=== PATIENT | male | born 1940 | race Caucasian/White ===

== ENCOUNTER 2019-12-22 20:31 | Emergency (ER) | payer SELFPAY ==
[~2019-12-22] VITALS: Ht 172.7 cm; Wt 92.5 kg
[2019-12-22 20:36] VITALS: Ht 172.7 cm; Wt 92.5 kg
[2019-12-22] MEDS ORDERED: ZOLOFT50 MG PO (20:38)
[2019-12-22] MEDS ORDERED: TRIBENZOR 40-51 EAC1 PO (20:39)
[2019-12-22] MEDS ORDERED: FENOFIBRATE160 MG PO (20:39)
[2019-12-22 20:50] LABS: BASOPHILS 0.5 % (0-2); EOSINOPHILS 1.3 % (0-7); HEMATOCRIT 38.6 % (42.0-54.0); HEMOGLOBIN 12.5 g/dL (13.5-17.5); IMMATURE GRANULOCYTES 0.3 % (0-5); LYMPHOCYTES 17.5 % (15-50); MCH 32.7 pg (26.0-34.0); MCHC 32.4 g/dL (31.0-37.0); MEAN PLATELET VOLUME 12.1 fL (7.4-10.4); MONOCYTES 11.7 % (2-11); NEUTROPHILS 68.7 % (40-80); PLATELET COUNT 126 10x3/uL (130-400); RBC 3.82 10x6/uL (4.20-6.10); RDW 13.2 % (11.5-14.5); WBC 6.2 10x3/uL (4.8-10.8)
[2019-12-22 21:04] LABS: CALC OSMOLALITY 287 mosm/kg (275-300); CALCIUM 8.2 mg/dL (8.5-10.1); CARBON DIOXIDE 24.1 mmol/L (21.0-32.0); CHLORIDE - SERUM 103 mmol/L (98-107); CREATININE - SERUM 1.9 mg/dL (0.6-1.3); GLUCOSE 119 mg/dL (74-106); POTASSIUM - SERUM 4.2 mmol/L (3.5-5.1); SODIUM 136 mmol/L (136-145); UREA NITROGEN 54 mg/dL (7-18); eGFR NON AFRICAN AMERICAN 37 mL/min (90-120)
[2019-12-22 21:19] LABS: ALBUMIN 3.2 g/dL (3.4-5.0); ALKALINE PHOSPHATASE 78 U/L (30-120); ALT (SGPT) 26 U/L (10-68); BILIRUBIN - TOTAL 0.39 mg/dL (0.2-1.3); CKMB 2.2 U/L (0.0-3.6); PROTEIN - SERUM 6.6 g/dL (6.4-8.2); TROPONIN-I < 0.017 ng/mL (0.000-0.060)
[2019-12-22 21:37] LABS: BILIRUBIN NEGATIVE (NEGATIVE); GLUCOSE NEGATIVE (NEGATIVE); KETONE NEGATIVE (NEGATIVE); NITRITE NEGATIVE (NEGATIVE); UROBILINOGEN NORMAL (NORMAL)
[2019-12-22] MEDS ORDERED: HYDROCODON-ACE1 EAC7 PO (22:44)
[2019-12-22 23:41] VITALS: BP 162/78
== END 2019-12-22 23:49 | disposition home or self-care (01) ==
LOC: D.ER 20:31
PROVIDERS: Family Medicine
DX: R55 Syncope and collapse (principal); I95.9 Hypotension, unspecified; D64.89 Other specified anemias; E86.0 Dehydration; W19.XXXA Unspecified fall, initial encounter; Z91.81 History of falling; Y93.9 Activity, unspecified; Y92.9 Unspecified place or not applicable; R07.81 Pleurodynia

== ENCOUNTER 2021-02-02 12:00 | Day surgery (SDC) | payer MEDICARE, OTHER ==
[~2021-02-02] VITALS: Ht 172.7 cm; Wt 95.5 kg
[~2021-02-02 12:00] MED LIST: FENOFIBRATE160 MG PO; HYDROCODON-ACE1 EAC7 PO; TRIBENZOR 40-51 EAC1 PO; ZOLOFT50 MG PO
[2021-02-02 12:17] LABS: EOSINOPHILS 2.5 % (0-7); HEMATOCRIT 42.7 % (42.0-54.0); HEMOGLOBIN 14.5 g/dL (13.5-17.5); LYMPHOCYTES 21.9 % (15-50); MCHC 33.9 g/dL (31.0-37.0); MCV 97.3 fL (80.0-100.0); MEAN PLATELET VOLUME 9.4 fL (7.4-10.4); MONOCYTES 11.8 % (2-11); NEUTROPHILS 62.8 % (40-80); RBC 4.39 10x6/uL (4.20-6.10); RDW 13.8 % (11.5-14.5); WBC 4.8 10x3/uL (4.8-10.8)
[2021-02-02 12:31] LABS: PLATELET COUNT 169 10x3/uL (130-400)
[2021-02-02 12:34] LABS: ANION GAP 9.3 mmol/L (8-16); CALCIUM 9.4 mg/dL (8.5-10.1); CARBON DIOXIDE 29.1 mmol/L (21.0-32.0); CREATININE - SERUM 1.6 mg/dL (0.6-1.3); POTASSIUM - SERUM 4.4 mmol/L (3.5-5.1)
[2021-02-02 13:05] VITALS: BP 171/79; Ht 172.7 cm; Wt 95.5 kg
--- NOTE | 2021-02-02 17:30 | NUR ---
DC TEACHING COMPLETE TO AND PATIENT. VERBALIZED UNDERSTANDING. 1741 PIV REMOVED WITH CATHETER INTACT. ASSITING PT TO GET DRESSED. 1754 PT DC'D VIA WC TO POV ACCOMPANIED BY KELLY WITH ALL BELONGINGS AND DC PACKET.
--- NOTE | 2021-02-03 06:26 | OP ---
PATIENT NAME: BHARATH MCDONALD MEDICAL RECORD: [id number] :42 LOCATION:[facility] ADMISSION DATE: SURGEON: ALYSSA BRENNER DO DATE OF OPERATION: 02/02/2021 PROCEDURE: Colonoscopy with polypectomy. INDICATION FOR PROCEDURE: History of colon polyps. SCOPE: Olympus video pediatric colonoscope. MEDICATIONS: General anesthesia. Please see anesthesia report. COMPLICATIONS: None. FINDINGS AND DESCRIPTION OF PROCEDURE: Informed consent was given. The patient was made comfortable with the above medication. After reaching an adequate level of sedation by slow IV push, the patient was placed on his left side. Digital rectal examination was performed and it was normal. The endoscope was advanced under direct visualization through the rectum to the cecum, confirmed by the presence of the appendiceal orifice and ileocecal valve. The endoscope was slowly withdrawn and the mucosa was carefully examined. The prep quality was fair. There were numerous polyps visualized on today's examination. All were removed using a hot snare. In the sigmoid colon, there were 12 separate benign-appearing sessile polyps, which ranged in size from 3 mm to 7 mm in diameter. In the descending colon, there were 6 polyps, which were benign-appearing, sessile, and ranged in size from 3 to 8 mm in diameter. In the transverse colon, there were two benign-appearing sessile polyps, which ranged in size from 3 to 5 mm in diameter. In the ascending colon, there was a single polyp, which was benign and sessile and measured approximately 5 mm in diameter. Again, all polyps were removed using a hot snare. Retroflexion was not performed on today's examination. The endoscope was withdrawn from the patient. The patient tolerated the procedure well and there were no complications. IMPRESSION: Numerous polyps as described above, removed using hot snare. PLAN AND RECOMMENDATIONS: 1. Discharge home when recovery parameters are met. 2. Follow up biopsy specimen results. 3. High fiber diet. 4. Continue current medications. 5. Recall colonoscopy in 1 to 2 years in the OR while intubated. TRANSINT:[id number] Voice Confirmation ID: [id number] DOCUMENT ID: [id number] ALYSSA BRENNER DO at 0626 CC: [id number] DICTATION DATE: 02/02/21 1545 FLIGHT RESERVATIONS MANAGER: 02/02/21 3805 [facility] 02/02/21 [facility] [address] [id number]
== END 2021-02-02 17:55 | disposition home or self-care (01) ==
LOC: D.OPS 12:00
PROVIDERS: Anesthesiology; ATTEND Internal Medicine Gastroenterology
DX: Z86.010 Personal history of colon polyps (principal); K63.5 Polyp of colon